=== PATIENT | female | born 1955 | race African-American/Black ===

== ENCOUNTER → 2018-02-06 | Outpatient (CLI) | payer OTHER ==
[~2018-02-06] MED LIST: ASPIR 8181 MG PO; AUGMENTIN 875875 MG PO; CILOSTAZOL 100100 M1 PO; CRESTOR10 MG PO; FISH OIL 1,001000 M2 PO; FLONASE 0.05%50 MCG NASAL; IBUPROFEN 600600 M1 PO; KEFLEX500 MG PO; LIPITOR40 MG PO; MUCINEX TA600 MG/TA2 PO; NORVASC5 MG PO; PLAVIX 75 MG TA75 M1 PO; UNICOMPLEX M TA1 TA1 PO; WELLBUTRIN SR150 MG PO; ZETIA10 MG PO; ZPAK PO
== END ==
LOC: RAD 01:58
DX: Z12.31 Encounter for screening mammogram for malignant neoplasm of breast (principal)

== ENCOUNTER → 2019-02-12 | Outpatient (CLI) | payer OTHER | LOC: RAD 09:19 | DX: Z12.31 Encounter for screening mammogram for malignant neoplasm of breast (principal) ==

== ENCOUNTER 2019-04-01 11:54 | Observation (INO) | payer OTHER ==
[~2019-04-01] VITALS: Ht 165.1 cm; Wt 59.0 kg
[2019-04-01 12:46] VITALS: BP 156/68
[2019-04-01] MEDS ORDERED: ASPIR 8181 M1 PO (13:10)
[2019-04-01] MEDS ORDERED: SYMBICORT160 MCG/4. INH (13:12)
[2019-04-01] MEDS ORDERED: LIPITOR80 MG PO (13:12)
[2019-04-01] MEDS ORDERED: CILOSTAZOL 100100 M1 PO (13:14)
[2019-04-01 13:50] LABS: HEMATOCRIT 40.1 % (37.0-47.0); HEMOGLOBIN 12.9 gm/dL (12.0-15.0); MCHC 32.1 g/dL (28.0-37.0); MCV 74.6 fL (80.0-100.0); RBC 5.37 mil/uL (4.20-5.00); RDW 18.4 % (10.5-14.5); WBC 10.1 thou/uL (4.0-11.0)
[2019-04-01 14:00] LABS: CALCIUM 9.6 mg/dL (8.5-10.1); CREATININE 0.8 mg/dL (0.6-1.0)
--- NOTE | 2019-04-01 17:20 | NUR ---
Report called to [facility]. transferring pt to room 219 per bed.
--- NOTE | 2019-04-01 18:50 | NUR ---
ADMITTED PATIENT OBSERVATION FROM NPS AT 1745. RIGHT GROIN SITE CHECKED WITH NPS STAFF. PATIENT SITE WITHOUT ANY BLOOD, HEMATOMA OR EDEMA. PATIENT ON BEDREST UNTIL 1999. ASSESSMENT COMPLETED. INSTRUCTIONS GIVEN TO CROP RANCH HAND FOR D/C.
[2019-04-01 19:57] VITALS: BP 120/57
--- NOTE | 2019-04-01 21:01 | NUR ---
ASSUME CARE 1899. PT/VITALS STABLE. DENIES ANY PAIN. ON BEDREST UNTILL 1999. RIGHT GROIN SITE CDI/SOFT/NO HEMATOMA/NO BRUISING/NO BLEEDING NOTED. 1999: IV TAKEN OUT FROM LEFT HAND. SITE CDI/TAPE AND GAUZE APPLIED. TEACHING DONE ON ACTIVITY, MEDICATIONS, SITE CARE, AND FOLLOWUP APPOINTMENT COMMUNICATED TO PT AND HIGHLIGHTED ON HER COPY TO TAKE HOME. PT VERBALIZES UNDERSTANDING AND SITE CHECKED AGAIN AFTER PT HAD PUT CLOTHES ON AND WAS READY TO LEAVE. 2020: PT WHEELED OUT WITH DAUGHTER PRESENT. BELONGINGS WITH DAUGHTER/PT STABLE AND WHEELED TO DAUGHTER'S CAR.
== END 2019-04-01 21:09 | disposition home or self-care (01) ==
LOC: SPEC 11:54 → 2N 18:06
PROVIDERS: ADMIT Nuclear Medicine Nuclear Cardiology
DX: I73.9 Peripheral vascular disease, unspecified (principal)

== ENCOUNTER → 2020-03-29 | Outpatient (CLI) | payer OTHER ==
[~2020-03-29] MED LIST changes: +ASPIR 8181 M1 PO; +LIPITOR80 MG PO; +SYMBICORT160 MCG/4. INH
== END ==
LOC: BC 08:19
DX: Z12.31 Encounter for screening mammogram for malignant neoplasm of breast (principal)

== ENCOUNTER → 2021-04-09 | Outpatient (CLI) | payer OTHER | LOC: CAT 09:29 | PROVIDERS: ATTEND Nurse Practitioner | DX: Z12.2 Encounter for screening for malignant neoplasm of respiratory organs (principal); I70.0 Atherosclerosis of aorta; I25.10 Atherosclerotic heart disease of native coronary artery without angina pectoris; R91.8 Other nonspecific abnormal finding of lung field; Z87.891 Personal history of nicotine dependence ==

== ENCOUNTER → 2021-04-11 | Outpatient (CLI) | payer OTHER | LOC: SJCVC 11:49 | PROVIDERS: ATTEND Internal Medicine Cardiovascular Disease | DX: R94.31 Abnormal electrocardiogram [ECG] [EKG] (principal); R07.9 Chest pain, unspecified; E78.00 Pure hypercholesterolemia, unspecified; I73.9 Peripheral vascular disease, unspecified; F17.209 Nicotine dependence, unspecified, with unspecified nicotine-induced disorders; Z79.82 Long term (current) use of aspirin; Z79.899 Other long term (current) drug therapy ==

== ENCOUNTER → 2021-04-13 | Outpatient (CLI) | payer OTHER | LOC: BC 09:42 | PROVIDERS: ATTEND Nurse Practitioner | DX: Z12.31 Encounter for screening mammogram for malignant neoplasm of breast (principal); N64.89 Other specified disorders of breast ==

== ENCOUNTER → 2021-04-20 | Outpatient (CLI) | payer OTHER | LOC: SJCVCIMAG | PROVIDERS: ATTEND Internal Medicine Cardiovascular Disease | DX: I08.0 Rheumatic disorders of both mitral and aortic valves (principal); I49.3 Ventricular premature depolarization; R06.00 Dyspnea, unspecified; R51.9 Headache, unspecified; R07.9 Chest pain, unspecified; I73.9 Peripheral vascular disease, unspecified; E78.00 Pure hypercholesterolemia, unspecified; I65.29 Occlusion and stenosis of unspecified carotid artery; R00.0 Tachycardia, unspecified; E78.5 Hyperlipidemia, unspecified; F17.209 Nicotine dependence, unspecified, with unspecified nicotine-induced disorders; Z79.82 Long term (current) use of aspirin; Z79.899 Other long term (current) drug therapy; Z95.828 Presence of other vascular implants and grafts ==

== ENCOUNTER → 2021-05-08 | Outpatient (CLI) | payer OTHER ==
[~2021-05-08] VITALS: Ht 165.1 cm; Wt 59.9 kg
[~2021-05-08] MED LIST changes: +CRESTOR40 MG PO; +PERCOCET 7.5-31 EAC1 PO; +PLAVIX 75 MG TA75 MG PO; +ZANAFLEX4 M1 PO
[2021-05-08 08:20] VITALS: BP 134/61
[2021-05-08 09:21] LABS: HEMATOCRIT 30.2 % (37.0-47.0); HEMOGLOBIN 8.8 gm/dL (12.0-15.0); MCH 18.4 pg (26.0-34.0); MCHC 29.1 g/dL (28.0-37.0); MCV 63.1 fL (80.0-100.0); RBC 4.8 mil/uL (4.20-5.00); WBC 7.8 thou/uL (4.0-11.0)
[2021-05-08 09:40] LABS: CALCIUM 8.8 mg/dL (8.5-10.1); CREATININE 0.8 mg/dL (0.6-1.0)
--- NOTE | 2021-05-08 13:50 | CATHLAB ---
[facility] [place] [address] INVASIVE PROCEDURE REPORT Name: CELESTE COLÓNKEVIN Room #: PRE [facility].#: [id number] Admission: Attend Phys: Charly Nur MD Discharge: Date of : 55 Report #: [id number] THIS REPORT FOR: cc: Deion Woods Andrea RNP Park, Jin S. MD ~ APPROVED REPORT Study performed: 05/08/2021 09:16:16 Patient Details Patient Status: Out-Patient Room #: The patient is a 65 year-old female Event Personnel Charly Nur Race Starter, Nicole King RTR Monitor, Karol Curry RN RN, Kayleen Ovalle RT(R)() Mariana Mendoza Jordan RTR Jewelry Maker Procedures Performed Art Access - R femoral artery* Left Heart Cath w/or w/o Coronaries [id number] [facility] [address] Initial Mod Sed Same Phys/QHP Gr5y [id number] Mod Sed Same Phys/QHP Ea [id number] Hemostasis with Manual pressure Indication Positive stress test, Chest pain Risk Factors Peripheral Vascular Disease, HypercholesterolemiaPhysical Activity, Tobacco History () Previous Procedures/Diagnoses Previous Femoral Procedure Procedure Narrative The Right Groin^ was infiltrated with 1% Lidocaine subcutaneous anesthesia. A PINNACLE 4FR Sheath #[id number] sheath was inserted into the RFA^. Coronary angiography was performed using coronary diagnostic catheters. The right coronary system was accessed and visualized with a JR4 catheter. The left coronary system was accessed and visualized with a JL4 catheter. The left ventricle was accessed and visualized with a JR4 catheter. Hemostasis was obtained with manual pressure following sheath removal without any complications. [facility] [address] [place] [address] INVASIVE PROCEDURE REPORT Name: KEVIN SILVERIO Room #: PRE [facility]#: [id number] Admission: Attend Phys: Charly Nur MD Discharge: Date of : 55 Report #: [id number] The patient tolerated the procedure well and there were no complications associated with the procedure. There was no hematoma. Intraoperative Conscious Sedation Sedation start time: 9:48 Case end Time: 10:25 Fentanyl 150 mcg Versed 2 mg Fluoro Time: 2.16 minutes Dose: DAP 1492.70 cGycm2 189 mGy Contrast Type and Amount: Omnipaque 45 ml Coronary Angiography The patient's coronary anatomy is right dominant. Diagnostic Cath Left Main The left main artery is a large-caliber vessel, with mild disease proximally. LAD The LAD is a moderate-sized caliber vessel, traverses the anterior wall and wraps around the apex. There is mild disease in the ostium, 20%. Diagonal 1 This is a small to moderate-sized caliber vessel, patent with no flow-limiting lesions. Circumflex This is a moderate-sized caliber vessel, with mild disease proximally, 30%. OM1 This is a small to moderate-sized caliber vessel, patent with no flow-limiting lesions. OM2 This vessel divides into 2 branches. This vessel is patent with no flow-limiting lesions. Right Coronary The RCA is a dominant vessel, with mild disease in the midsegment, 30%. R PDA This is a small to moderate-sized caliber vessel, patent with no flow-limiting lesions. RPLV This is a small to moderate-sized caliber vessel, patent with no flow-limiting lesions. Left Ventriculography Left Ventriculography was not performed. Ejection Fraction was 60% based off patient's Nuclear Cardiac Stress Test. An LVEDP was measured and there is no gradient across the outflow tract. Hemodynamics The aortic pressure is 128/43 mmHg with a mean of 82 mmHg. The left ventricular pressure is 132/6 mmHg with a mean of mmHg. The left [facility] [address] [place] [address] INVASIVE PROCEDURE REPORT Name: KEVIN SILVERIO Room #: PRE [facility].#: [id number] Admission: Attend Phys: Charly Nur MD Discharge: Date of : 55 Report #: [id number] ventricular end diastolic pressure is 19 mmHg. Conclusion 1. There is mild, nonobstructive coronary artery disease in the epicardial vessels. 2. This is a right dominant system. 3. There is normal LV systolic function. 4. Recommend guideline directed medical therapy. <ELECTRONICALLY SIGNED> By: Charly Nur MD 05/08/21 1350 1350 1350 Charly Nur MD /INF
== END | disposition home or self-care (01) ==
LOC: CATH 07:29
PROVIDERS: ATTEND Internal Medicine Cardiovascular Disease
DX: R94.39 Abnormal result of other cardiovascular function study (principal); I25.10 Atherosclerotic heart disease of native coronary artery without angina pectoris; R07.9 Chest pain, unspecified; I10 Essential (primary) hypertension; I73.9 Peripheral vascular disease, unspecified; E78.5 Hyperlipidemia, unspecified; F17.210 Nicotine dependence, cigarettes, uncomplicated; Z98.890 Other specified postprocedural states; Z79.899 Other long term (current) drug therapy